=== PATIENT | female | born 1950 | race African-American/Black ===

== ENCOUNTER 2020-02-11 15:18 | Inpatient (IN) ==
[2020-02-11] MEDS ORDERED: NS 1000 ML 1,000 ML IV ONE (18:26)
[2020-02-11 19:24] LABS: BILIRUBIN,URINE NEGATIVE (NEGATIVE); BLOOD/HEMOGLOBIN,URINE NEGATIVE (NEGATIVE); GLUCOSE, URINE NEGATIVE (NEGATIVE); KETONES,URINE NEGATIVE (NEGATIVE); LEUKOCYTE ESTERASE ,URINE 1+ (NEGATIVE); NITRITES,URINE NEGATIVE (NEGATIVE); PROTEIN,URINE 2+ (NEGATIVE); UROBILINOGEN,URINE NORMAL (NORMAL)
[2020-02-11 19:32] LABS: APPEARANCE,URINE HAZY (CLEAR); BACTERIA,URINE NEGATIVE /HPF (NEGATIVE); COLOR,URINE YELLOW (YELLOW); MUCUS,URINE MODERATE /HPF (NEGATIVE); RBC,URINE 0-2 /HPF (0-3); SQUAMOUS EPITHELIAL CELL,UR RARE /HPF (NEGATIVE); YEAST,URINE MANY /HPF (NEGATIVE)
[2020-02-11 20:11] LABS: BASOPHILS # (AUTO) 0.1 X10^3/uL (0.0-0.1); BASOPHILS % (AUTO) 0.5 % (0.2-1.0); EOSINOPHILS # (AUTO) 0.2 x10^3/uL (0.0-0.2); EOSINOPHILS % (AUTO) 2.1 % (0.9-2.9); HEMATOCRIT 31.6 % (36.0-47.0); HEMOGLOBIN 10.2 g/dL (12.0-16.0); LYMPHOCYTES # (AUTO) 2.2 X10^3/uL (1.3-2.9); LYMPHOCYTES % (AUTO) 21.8 % (21.0-51.0); MEAN CORPUSCULAR HGB CONC 32.5 g/dL (33.0-35.0); MEAN CORPUSCULAR VOLUME 83.2 fL (80.0-100.0); MEAN PLATELET VOLUME 7.7 fL (7.4-11.0); MONOCYTES # (AUTO) 0.6 x10^3/uL (0.3-0.8); MONOCYTES % (AUTO) 6.2 % (0.0-13.0); NEUTROPHILS # (AUTO) 7.1 x10^3/uL (2.2-4.8); NEUTROPHILS % (AUTO) 69.4 % (42.0-75.0); PLATELET COUNT 416 X10^3/uL (150.0-450.0); RED BLOOD COUNT 3.79 X10^6/uL (3.5-5.4); RED CELL DISTRIBUTION WIDTH 16.1 % (11.6-16.5); WHITE BLOOD COUNT 10.2 X10^3/uL (3.6-10.0)
[2020-02-11 20:17] LABS: ALANINE AMINOTRANSFERASE 16 Units/L (12-78); ALBUMIN 3.1 g/dL (3.4-5.0); ALKALINE PHOSPHATASE 52 Units/L (46-116); ASPARTATE AMINO TRANSFERASE 27 Units/L (15-37); BLOOD UREA NITROGEN 82 mg/dL (7-18); CALCIUM 9.6 mg/dL (8.5-10.1); CARBON DIOXIDE 19.5 mmol/L (21-32); CHLORIDE 110 mmol/L (98-107); COR CA(FOR HYPOALB) 10.3 mg/dL (8.5-10.1); CREATININE 5.24 mg/dL (0.55-1.02); SODIUM 143 mmol/L (136-145); TOTAL PROTEIN 7.9 g/dL (6.4-8.2); eGFR NON BLACK RACES 9 (>60)
[2020-02-11] MEDS: MILK OF MAGNESIA PO SCH (21:00)
[2020-02-11] MEDS ORDERED: KAYEXALATE SUSP PO SCH (21:00)
[2020-02-11] MEDS: COLACE CAP 100 MG PO SCH (21:00)
[2020-02-11] MEDS ORDERED: HumuLIN R SUBCUT PRN (21:25)
[2020-02-11] MEDS ORDERED: D50W ABBOJECT SYR IV ONE (21:40)
[2020-02-11] MEDS ORDERED: HumuLIN R IV ONE (21:46)
[2020-02-11] MEDS ORDERED: D50W ABBOJECT SYR ONE (22:08)
[2020-02-12] MEDS: KAYEXALATE SUSP RECTAL SCH ×4 (02:56→21:44)
[2020-02-12] MEDS ORDERED: NS 1000 ML 1,000 ML IV SCH (04:30)
--- NOTE | 2020-02-12 06:23 | RAD ---
HISTORYElevated potassium.STUDYCHEST, 1 VIEWCOMPARISONNone.FINDINGSThe patient is rotated. The cardiac silhouette is enlarged without overt signs of failure. The lungs are clear without focal infiltrate, pneumothorax, or effusion. The bony thorax is unremarkable.IMPRESSIONNo acute cardiopulmonary disease.Electronically signed by: PADMINI FERRELL (Feb 12, 2020 06:21:11)
--- NOTE | 2020-02-12 06:29 | US ---
HISTORYAKISTUDYRENAL SONOGRAMCOMPARISONNone.TECHNIQUEMultiple kern scale and color flow Doppler images of the kidneys were obtained. The region of the urinary bladder was evaluated as well.FINDINGSThe right kidney is normal in size but demonstrates increased echogenicity. The right kidney measures 8.3 cm. No focal mass, hydronephrosis, or stones identified. Normal resistive index of 0.48.The left kidney is normal in size but demonstrates increased echogenicity. The left kidney measures 10.0 cm. No focal mass, hydronephrosis, or stone can be seen within the left kidney. Increased resistive index of 0.71.There is a Carr catheter within the bladder which limits evaluation.IMPRESSIONOne. Increased echogenicity of the bilateral kidneys likely representing underlying medical renal disease.Two. Elevated resistive index of the left kidney to 0.71.Electronically signed by: PADMINI FERRELL (Feb 12, 2020 06:28:16)
[2020-02-12 06:52] LABS: ALANINE AMINOTRANSFERASE 16 Units/L (12-78); ALBUMIN 2.8 g/dL (3.4-5.0); ALKALINE PHOSPHATASE 47 Units/L (46-116); ASPARTATE AMINO TRANSFERASE 27 Units/L (15-37); BLOOD UREA NITROGEN 72 mg/dL (7-18); CALCIUM 9.4 mg/dL (8.5-10.1); CARBON DIOXIDE 18.8 mmol/L (21-32); COR CA(FOR HYPOALB) 10.4 mg/dL (8.5-10.1); CREATININE 4.36 mg/dL (0.55-1.02); SODIUM 145 mmol/L (136-145); TOTAL PROTEIN 7.5 g/dL (6.4-8.2); eGFR NON BLACK RACES 11 (>60)
[2020-02-12 06:56] LABS: CHLORIDE 115 mmol/L (98-107)
[2020-02-12 07:24] LABS: BASOPHILS # (AUTO) 0.1 X10^3/uL (0.0-0.1); BASOPHILS % (AUTO) 0.6 % (0.2-1.0); EOSINOPHILS # (AUTO) 0.4 x10^3/uL (0.0-0.2); EOSINOPHILS % (AUTO) 3.8 % (0.9-2.9); HEMATOCRIT 30.1 % (36.0-47.0); HEMOGLOBIN 9.6 g/dL (12.0-16.0); LYMPHOCYTES # (AUTO) 3.2 X10^3/uL (1.3-2.9); LYMPHOCYTES % (AUTO) 27.6 % (21.0-51.0); MEAN CORPUSCULAR HEMOGLOBIN 26.5 pg (27.0-34.0); MEAN CORPUSCULAR HGB CONC 31.8 g/dL (33.0-35.0); MEAN CORPUSCULAR VOLUME 83.4 fL (80.0-100.0); MEAN PLATELET VOLUME 7.6 fL (7.4-11.0); MONOCYTES # (AUTO) 0.8 x10^3/uL (0.3-0.8); MONOCYTES % (AUTO) 6.6 % (0.0-13.0); NEUTROPHILS # (AUTO) 7.1 x10^3/uL (2.2-4.8); NEUTROPHILS % (AUTO) 61.4 % (42.0-75.0); PLATELET COUNT 404 X10^3/uL (150.0-450.0); RED BLOOD COUNT 3.61 X10^6/uL (3.5-5.4); RED CELL DISTRIBUTION WIDTH 16.3 % (11.6-16.5); WHITE BLOOD COUNT 11.5 X10^3/uL (3.6-10.0)
[2020-02-12 07:34] LABS: PLATELET MORPHOLOGY COMMENT NORMAL (NORMAL)
[2020-02-12 07:36] LABS: POIKILOCYTOSIS SLIGHT
[2020-02-12] MEDS ORDERED: MORPHINE SULFATE INJ 2 MG INJ IVP ONE ×2 (11:37→18:10)
[2020-02-12] MEDS ORDERED: MORPHINE SULFATE INJ 2 MG INJ ONE (11:40)
[2020-02-12 11:55] LABS: CKMB % 0.5 % (<4); TROPONIN I 0.02 ng/mL (0-1.5)
[2020-02-12] MEDS ORDERED: XYLOCAINE 1 % (PLAIN) ONE (11:56)
[2020-02-12 11:57] LABS: CREATINE KINASE MB 4.1 ng/mL (0-4.0)
[2020-02-12] MEDS ORDERED: NS 1/2 1000 ML IV 1,000 ML IV ONE (12:25)
--- NOTE | 2020-02-12 12:43 | DR.H&P ---
H&P - History & Physical for Day of: H&P Date: 02/11/20 - Chief Complaint Chief Complaint: ACUTE RENAL FAILURE, HYPERKALEMIA - History of Present Illness History of Present Illness: PT IS 69 RESIDENT OF [facility] WITH NEW ONSET ACUTE RENAL FAILURE WITH HYPERKALEMIA FOLLOWING TREATMENT WITH PO BACTRIM POST OPERATIVE ORTHO PROCEDURE( LEFT FOOT). PT HAD PMH OF HTN, MENTAL ILLNESS AND DIABETES. PT ADMITTED FOR TREATMENT OF ACUTE ILLNESS, ELECTROLYTE IMBALANCE - Past Medical History Past Medical History: Anxiety, Arthritis, Depression, Diabetes, Hypertension, Schizophrenia - Past Surgical History Surgical History: Cholecystectomy - Family History Family Medical History: Diabetes Mellitus, Hypertension - Social History Does patient currently use any type of tobacco product: No Have you used tobacco products in the last 12 months: No Type of Tobacco Use: Cigarettes How many years tobacco product used: 50 Does any household member use tobacco: No Alcohol Use: None Drug Use: None - Medications Home Medications: No Known Drug Allergies Allergy (Verified 02/11/20 19:26) CONTINUE taking the following medications ascorbic acid (vitamin C) [Vitamin C] 500 mg PO DAILY 02/11/20 [History] cholestyramine (with sugar) 4 g PO BID 02/11/20 [History] collagenase clostridium histo. [Santyl] 1 applic TOPICAL DAILY 02/11/20 [History] furosemide 40 mg PO DAILY 02/11/20 [History] haloperidol decanoate 25 mg IM Q1-2M 02/11/20 [History] hydralazine 100 mg PO BID 02/11/20 [History] ibuprofen 600 mg PO Q8H PRN 02/11/20 [History] lisinopril 20 mg PO DAILY 02/11/20 [History] metformin 500 mg PO BID 02/11/20 [History] metoprolol tartrate 25 mg PO DAILY 02/11/20 [History] multivitamin with iron 1 tab PO DAILY 02/11/20 [History] potassium chloride 20 meq PO DAILY 02/11/20 [History] protein supplement [ProMod Protein] 1 ea PO BID 02/11/20 [History] sulfamethoxazole-trimethoprim 1 tab PO BID 02/11/20 [History] tramadol 50 mg PO Q6H PRN 02/11/20 [History] - Review of Systems Constitutional: Weakness. denies: Fever Eyes: No Symptoms Reported ENT: No Symptoms Reported Respiratory: No Symptoms Reported Cardiovascular: No Symptoms Reported Gastrointestinal: Nausea Genitourinary: No Symptoms Reported Musculoskeletal: No Symptoms Reported Skin: Wound Neurological: No Symptoms Reported - Physical Exam Vital Signs: Temperature 98.5 F Pulse Rate [Right Radial] 119 Respiratory Rate 20 Blood Pressure [Right Arm] 137/62 O2 Sat by Pulse Oximetry 100 Oriented: Normal Eyes: Normal Ear: Normal Nose: Normal Throat: Normal Respiratory: RLL Diminished, LLL Diminished Cardiovascular: Tachycardia : Normal Auscultation: Bowel Sounds: Normal Palpation: Normal Tenderness: Normal Skin: Normal Musculoskeletal: Left, Foot, Tender Psychiatric: Anxiety Affect: Anxious Speech Pattern: Clear, Appropriate - Assessment/Plan (1) Acute renal failure Status: Acute Plan: ADMIT, GENTLE IV HYDRATION. CXR ON ADMISSION. RENAL US ON ADMISSON. BP AND BS CONTROL. ELECTROLYTE CORRECTION, CARIDAC MONITORING (2) Hyperkalemia Status: Acute (3) Hypertension Status: Acute (4) Schizophrenia Status: Acute - Allergies Allergies/Adverse Reactions: Allergies Allergy/AdvReac Type Severity Reaction Status Date / Time No Known Drug Allergies Allergy Verified 02/11/20 19:26
--- NOTE | 2020-02-12 12:45 | RAD ---
HISTORYPOST CENTRAL LINE INSERTIONSTUDYCHEST, 1 VIEWCOMPARISONChest x-ray dated February 11, 2020.FINDINGSInterval placement of a right subclavian central venous catheter whose tip overlies the right ventricle. The trachea is midline. The cardiac silhouette is unremarkable . The lungs are clear without focal infiltrate, pneumothorax, or effusion. The bony thorax is unremarkable.IMPRESSIONOne. Right subclavian central venous catheter whose tip overlies the right ventricle. Recommend pulling tip back approximately 6 cm and reimaging.Two. No significant change in lung aeration.Electronically signed by: PADMINI FERRELL (Feb 12, 2020 12:43:10)
--- NOTE | 2020-02-12 12:49 | PCM.PROG ---
Progress Note - Progress Note for Day of Date of Exam: 02/12/20 - Subjective Subjective: PT IS 69 BF DIRECT ADMIT FROM [facility] PER DR ROONEY DUE TO ACUTE RANL FAILURE AND HYPERKALEMIA. PT HAD LEFT FOOT PROCEDURE PER SEMICONDUCTOR TECHNICIAN. PT IS CURRENTLY ON GENTLE IV HYDRATION WITH 1/2 NS AT 50CC. PT WAS GIVEN KAEXALATE PO, WITH PERSISTANT VOMITING AFTER ADMINISTRATION. DR SHANDA Melvin ONSULTED FOR CENTRAL LINE DUE TO POOR VASCULAR ACCESS. PT K 7.1, BUN 72 CREAT 4.36 THIS AM. CE AND EKG ORDERED AND KUB. PT IS TOLERATING PO WATER WELL, ENCOURAGED PO HYDRATION, BS CONTROL. RETENTION ENEMA ORDERED FOR ELECTROLYTE IMBALANCE. - Past Medical Family Social History Past Med/Fam/Surg Hx: No changes since H&P Allergies: Allergies No Known Drug Allergies Allergy (Verified 02/11/20 19:26) - Review of Systems ROS: No change since H&P - Vital Signs and I&O's Vital Signs: Temperature 98.5 F Pulse Rate [Right Radial] 119 Respiratory Rate 20 Blood Pressure [Right Arm] 137/62 O2 Sat by Pulse Oximetry 100 Intake and Output: Intake & Output 02/10/20 02/11/20 02/12/20 02/13/20 11:59 11:59 11:59 11:59 Intake Total 1405 / 1405 Output Total 850 / 850 Balance 555 / 555 - Physical Exam Oriented: Normal Eyes: Normal Ear: Normal Nose: Normal Throat: Normal Respiratory: Diminished Cardiovascular: Tachycardia : Normal Auscultation: Bowel Sounds: Normal Tenderness: Normal Skin: Normal Musculoskeletal: Left, Foot, Tender Psychiatric: Anxiety Affect: Anxious Speech Pattern: Clear, Appropriate - Laboratory and Diagnostics Result Diagrams: 02/12/20 05:50 02/12/20 05:50 Labs: 02/11/20 18:20 Urine,Catheterized Urine Culture - Preliminary Laboratory WBC 11.5 X10^3/uL (3.6-10.0) H 02/12/20 05:50 RBC 3.61 X10^6/uL (3.5-5.4) 02/12/20 05:50 Hgb 9.6 g/dL (12.0-16.0) L 02/12/20 05:50 Hct 30.1 % (36.0-47.0) L 02/12/20 05:50 MCV 83.4 fL (80.0-100.0) 02/12/20 05:50 MCH 26.5 pg (27.0-34.0) L 02/12/20 05:50 MCHC 31.8 g/dL (33.0-35.0) L 02/12/20 05:50 RDW 16.3 % (11.6-16.5) 02/12/20 05:50 Plt Count 404 X10^3/uL (150.0-450.0) 02/12/20 05:50 Plt Count Comment Adequate (ADEQUATE) 02/12/20 05:50 MPV 7.6 fL (7.4-11.0) 02/12/20 05:50 Neut % (Auto) 61.4 % (42.0-75.0) 02/12/20 05:50 Lymph % (Auto) 27.6 % (21.0-51.0) 02/12/20 05:50 [place] % (Auto) 6.6 % (0.0-13.0) 02/12/20 05:50 Eos % (Auto) 3.8 % (0.9-2.9) H 02/12/20 05:50 Baso % (Auto) 0.6 % (0.2-1.0) 02/12/20 05:50 Neut # (Auto) 7.1 x10^3/uL (2.2-4.8) H 02/12/20 05:50 Lymph # (Auto) 3.2 X10^3/uL (1.3-2.9) H 02/12/20 05:50 [place] # (Auto) 0.8 x10^3/uL (0.3-0.8) 02/12/20 05:50 Eos # (Auto) 0.4 x10^3/uL (0.0-0.2) H 02/12/20 05:50 Baso # (Auto) 0.1 X10^3/uL (0.0-0.1) 02/12/20 05:50 Absolute Nucleated RBC 0.2 /100WBC 02/12/20 05:50 Plt Morphology Comment Normal (NORMAL) 02/12/20 05:50 RBC Morphology Abnormal (NORMAL) A 02/12/20 05:50 Poikilocytosis Slight A 02/12/20 05:50 Sodium 145 mmol/L (136-145) 02/12/20 05:50 Corrected Sodium TNP 02/12/20 05:50 Potassium 7.1 mmol/L (3.5-5.1) H* 02/12/20 05:50 Chloride 115 mmol/L (98-107) H* 02/12/20 05:50 Carbon Dioxide 18.8 mmol/L (21-32) L 02/12/20 05:50 BUN 72 mg/dL (7-18) H 02/12/20 05:50 Creatinine 4.36 mg/dL (0.55-1.02) H 02/12/20 05:50 Est GFR (MDRD) Af Amer 13 (>60) L 02/12/20 05:50 Est GFR (MDRD) Non-Af 11 (>60) L 02/12/20 05:50 Glucose 76 mg/dL (65-99) 02/12/20 05:50 POC Glucose (mg/dL) 60 mg/dL (65-99) L 02/12/20 12:22 Calcium 9.4 mg/dL (8.5-10.1) 02/12/20 05:50 Corrected Calcium 10.4 mg/dL (8.5-10.1) H 02/12/20 05:50 Total Bilirubin 0.20 mg/dL (0.2-1.0) 02/12/20 05:50 AST 27 Units/L (15-37) 02/12/20 05:50 ALT 16 Units/L (12-78) 02/12/20 05:50 Alkaline Phosphatase 47 Units/L (46-116) 02/12/20 05:50 Creatine Kinase 919 Units/L (26-192) H 02/12/20 05:50 CK-MB (CK-2) 4.1 ng/mL (0-4.0) H 02/12/20 05:50 CK/CKMB % Calc 0.5 % (<4) 02/12/20 05:50 Troponin I 0.02 ng/mL (0-1.5) 02/12/20 05:50 Total Protein 7.5 g/dL (6.4-8.2) 02/12/20 05:50 Albumin 2.8 g/dL (3.4-5.0) L 02/12/20 05:50 Globulin 4.7 g/dL (2.5-4.5) H 02/12/20 05:50 Albumin/Globulin Ratio 0.6 Ratio (1.1-2.1) L 02/12/20 05:50 Specimen Type Catherized urine 02/11/20 18:20 Urine Color Yellow (YELLOW) 02/11/20 18:20 Urine Appearance Hazy (CLEAR) 02/11/20 18:20 Urine pH 5.0 (5.0 - 8.0) 02/11/20 18:20 Ur Specific [place] 1.015 (1.000-1.030) 02/11/20 18:20 Urine Protein 2+ (NEGATIVE) 02/11/20 18:20 Urine Glucose (UA) Negative (NEGATIVE) 02/11/20 18:20 Urine Ketones Negative (NEGATIVE) 02/11/20 18:20 Urine Occult Blood Negative (NEGATIVE) 02/11/20 18:20 Urine Nitrite Negative (NEGATIVE) 02/11/20 18:20 Urine Bilirubin Negative (NEGATIVE) 02/11/20 18:20 Urine Urobilinogen Normal (NORMAL) 02/11/20 18:20 Ur Leukocyte Esterase 1+ (NEGATIVE) 02/11/20 18:20 Urine RBC 0-2 /HPF (0-3) 02/11/20 18:20 Urine WBC 3-5 /HPF (0-5) 02/11/20 18:20 Ur Squamous Epith Cells Rare /HPF (NEGATIVE) 02/11/20 18:20 Urine Bacteria Negative /HPF (NEGATIVE) 02/11/20 18:20 Urine Mucus Moderate /HPF (NEGATIVE) 02/11/20 18:20 Urine Yeast Many /HPF (NEGATIVE) 02/11/20 18:20 Ur Culture Indicated? No/not indicated 02/11/20 18:20 - Plan (1) Acute renal failure Status: Acute Plan: GENTLE IV HYDRATION. CXR ON ADMISSION. RENAL US ON ADMISSON. BP AND BS CONTROL. ELECTROLYTE CORRECTION,. CARIDAC MONITORING, CE AND EKG (2) Hyperkalemia Status: Acute (3) Hypertension Status: Acute (4) Schizophrenia Status: Acute
[2020-02-12] MEDS: NS 1/2 1000 ML IV 1,000 ML IV SCH (13:00)
[2020-02-12] MEDS ORDERED: ANCEF VIAL 1 GRAM IVP ONE (13:07)
[2020-02-12 13:33] VITALS: BMI 30.4
--- NOTE | 2020-02-12 13:34 | RAD ---
HISTORYPainSTUDYKUBCOMPARISONNoneFINDINGSThere is a overlying EKG lead artifact. There are multiple l oops of mildly dilated large and small bowel throughout the abdomen. There is moderate feces througho ut the colon. There is catheter tubing projecting along the lower pelvis. There is a left hip prosthe sis in good position. No free air is seen and there are surgical clips along the right upper quadrant . No urinary calculi are seen.IMPRESSIONStatus post cholecystectomy with a questionable diffuse mild postop ileus.Moderate constipation with a radiopaque catheter projecting along the lower pelvis.Elect ronically signed by: PADMINI VEGA (Feb 12, 2020 13:32:37)
[2020-02-12] MEDS ORDERED: NS 50 ML IV 50 ML IV ONE (15:20)
[2020-02-12] MEDS ORDERED: ANCEF VIAL 1 GRAM ONE (15:20)
[2020-02-12] MEDS: DIFLUCAN PO SCH (20:39)
[2020-02-12] MEDS: COLACE CAP 100 MG PO SCH (20:40)
[2020-02-12] MEDS: MILK OF MAGNESIA PO SCH (20:40)
[2020-02-12] MEDS ORDERED: APRESOLINE TAB 25 MG PO SCH (21:00)
[2020-02-13] MEDS: KAYEXALATE SUSP RECTAL SCH ×3 (03:30→17:23)
[2020-02-13] MEDS: NS 1/2 1000 ML IV 1,000 ML IV SCH ×4 (05:07→14:11)
[2020-02-13 06:45] LABS: BASOPHILS # (AUTO) 0.1 X10^3/uL (0.0-0.1); BASOPHILS % (AUTO) 0.7 % (0.2-1.0); EOSINOPHILS # (AUTO) 0.3 x10^3/uL (0.0-0.2); HEMATOCRIT 29.1 % (36.0-47.0); HEMOGLOBIN 9.5 g/dL (12.0-16.0); LYMPHOCYTES # (AUTO) 2.1 X10^3/uL (1.3-2.9); MEAN CORPUSCULAR HEMOGLOBIN 27.3 pg (27.0-34.0); MEAN CORPUSCULAR HGB CONC 32.8 g/dL (33.0-35.0); MEAN CORPUSCULAR VOLUME 83.2 fL (80.0-100.0); MONOCYTES # (AUTO) 0.6 x10^3/uL (0.3-0.8); MONOCYTES % (AUTO) 7.2 % (0.0-13.0); NEUTROPHILS # (AUTO) 4.7 x10^3/uL (2.2-4.8); NEUTROPHILS % (AUTO) 61.1 % (42.0-75.0); PLATELET COUNT 345 X10^3/uL (150.0-450.0); RED CELL DISTRIBUTION WIDTH 16.3 % (11.6-16.5); WHITE BLOOD COUNT 7.7 X10^3/uL (3.6-10.0)
[2020-02-13 06:57] LABS: ALANINE AMINOTRANSFERASE 15 Units/L (12-78); ALBUMIN 2.6 g/dL (3.4-5.0); ALKALINE PHOSPHATASE 47 Units/L (46-116); ASPARTATE AMINO TRANSFERASE 27 Units/L (15-37); BLOOD UREA NITROGEN 55 mg/dL (7-18); CALCIUM 8.8 mg/dL (8.5-10.1); CHLORIDE 111 mmol/L (98-107); COR CA(FOR HYPOALB) 9.9 mg/dL (8.5-10.1); CREATININE 2.92 mg/dL (0.55-1.02); SODIUM 141 mmol/L (136-145); TOTAL PROTEIN 6.9 g/dL (6.4-8.2); eGFR NON BLACK RACES 17 (>60)
[2020-02-13] MEDS: SNACK - Diabetic Appropriate PO SCH ×2 (07:38→20:15)
[2020-02-13] MEDS: DIFLUCAN PO SCH (09:57)
[2020-02-13] MEDS: LOPRESSOR TAB 25 MG PO SCH (09:57)
[2020-02-13] MEDS ORDERED: NS 1/2 1000 ML IV 1,000 ML IV ONE ×2 (10:13→19:30)
[2020-02-13] MEDS: MILK OF MAGNESIA PO SCH (21:40)
[2020-02-13] MEDS: COLACE CAP 100 MG PO SCH (21:40)
[2020-02-14] MEDS ORDERED: BUTT CREAM (COMPOUND) ONE (00:43)
[2020-02-14 06:41] LABS: BASOPHILS % (AUTO) 0.4 % (0.2-1.0); EOSINOPHILS # (AUTO) 0.4 x10^3/uL (0.0-0.2); EOSINOPHILS % (AUTO) 4.1 % (0.9-2.9); HEMATOCRIT 23.6 % (36.0-47.0); LYMPHOCYTES # (AUTO) 2.8 X10^3/uL (1.3-2.9); LYMPHOCYTES % (AUTO) 32.5 % (21.0-51.0); MEAN CORPUSCULAR HEMOGLOBIN 28.1 pg (27.0-34.0); MEAN CORPUSCULAR HGB CONC 33.8 g/dL (33.0-35.0); MEAN PLATELET VOLUME 7.9 fL (7.4-11.0); MONOCYTES # (AUTO) 0.5 x10^3/uL (0.3-0.8); NEUTROPHILS # (AUTO) 4.9 x10^3/uL (2.2-4.8); PLATELET COUNT 346 X10^3/uL (150.0-450.0); RED BLOOD COUNT 2.84 X10^6/uL (3.5-5.4); RED CELL DISTRIBUTION WIDTH 15.9 % (11.6-16.5); WHITE BLOOD COUNT 8.6 X10^3/uL (3.6-10.0)
[2020-02-14 06:42] LABS: ALANINE AMINOTRANSFERASE 13 Units/L (12-78); ALBUMIN 2.4 g/dL (3.4-5.0); ALKALINE PHOSPHATASE 43 Units/L (46-116); ASPARTATE AMINO TRANSFERASE 19 Units/L (15-37); BLOOD UREA NITROGEN 38 mg/dL (7-18); CALCIUM 8.7 mg/dL (8.5-10.1); CARBON DIOXIDE 20.9 mmol/L (21-32); CHLORIDE 111 mmol/L (98-107); CREATININE 1.76 mg/dL (0.55-1.02); SODIUM 142 mmol/L (136-145); TOTAL PROTEIN 6.3 g/dL (6.4-8.2); eGFR NON BLACK RACES 30 (>60)
[2020-02-14] MEDS ORDERED: NS 1/2 1000 ML IV 1,000 ML IV ONE (08:38)
[2020-02-14] MEDS: NS 1/2 1000 ML IV 1,000 ML IV SCH ×2 (08:56→16:16)
[2020-02-14] MEDS: LOPRESSOR TAB 25 MG PO SCH (08:57)
[2020-02-14] MEDS: DIFLUCAN PO SCH (08:57)
[2020-02-14] MEDS ORDERED: PHARMACY CONSULT LTC MEDICATIONS XX SCH (10:00)
--- NOTE | 2020-02-14 16:49 | RAD ---
HISTORYDIMISHED LUNG SOUNDSSTUDYCHEST, 1 [id number]/2020FINDINGSUnderinflation. Right subclavian central venous catheter again seen w ith tip in low right atrium. No dense consolidation, overt pulmonary edema, sizable effusion, or visi ble pneumothorax. No acute osseous finding.IMPRESSIONUnderinflation without acute finding. Right subc lavian central venous catheter remains deep. Consider 4 cm retraction.Electronically signed by: Kt Zendejas (Feb 14, 2020 16:47:53)
[2020-02-14] MEDS: SNACK - Diabetic Appropriate PO SCH (20:57)
[2020-02-14] MEDS: COLACE CAP 100 MG PO SCH (20:58)
[2020-02-14] MEDS: MILK OF MAGNESIA PO SCH (20:58)
[2020-02-14] MEDS: TEFLARO 400 MG in NS 50 ML IV 50 ML IV SCH (20:58)
[2020-02-15] MEDS ORDERED: NS 1/2 1000 ML IV 1,000 ML IV ONE ×2 (02:14→20:03)
[2020-02-15 05:58] LABS: BASOPHILS # (AUTO) 0.1 X10^3/uL (0.0-0.1); BASOPHILS % (AUTO) 0.7 % (0.2-1.0); EOSINOPHILS # (AUTO) 0.3 x10^3/uL (0.0-0.2); EOSINOPHILS % (AUTO) 3.8 % (0.9-2.9); HEMATOCRIT 25.8 % (36.0-47.0); HEMOGLOBIN 8.6 g/dL (12.0-16.0); LYMPHOCYTES # (AUTO) 2.6 X10^3/uL (1.3-2.9); LYMPHOCYTES % (AUTO) 31.3 % (21.0-51.0); MEAN CORPUSCULAR HGB CONC 33.5 g/dL (33.0-35.0); MEAN CORPUSCULAR VOLUME 83.7 fL (80.0-100.0); MEAN PLATELET VOLUME 7.5 fL (7.4-11.0); MONOCYTES # (AUTO) 0.5 x10^3/uL (0.3-0.8); MONOCYTES % (AUTO) 6.4 % (0.0-13.0); NEUTROPHILS # (AUTO) 4.9 x10^3/uL (2.2-4.8); NEUTROPHILS % (AUTO) 57.8 % (42.0-75.0); PLATELET COUNT 322 X10^3/uL (150.0-450.0); RED BLOOD COUNT 3.08 X10^6/uL (3.5-5.4); RED CELL DISTRIBUTION WIDTH 15.7 % (11.6-16.5); WHITE BLOOD COUNT 8.4 X10^3/uL (3.6-10.0)
[2020-02-15] MEDS: NS 1/2 1000 ML IV 1,000 ML IV SCH ×2 (06:01→19:11)
[2020-02-15 06:06] LABS: ALANINE AMINOTRANSFERASE 11 Units/L (12-78); ALBUMIN 2.3 g/dL (3.4-5.0); ALKALINE PHOSPHATASE 44 Units/L (46-116); ASPARTATE AMINO TRANSFERASE 18 Units/L (15-37); BLOOD UREA NITROGEN 27 mg/dL (7-18); CALCIUM 8.7 mg/dL (8.5-10.1); CARBON DIOXIDE 21.4 mmol/L (21-32); CHLORIDE 113 mmol/L (98-107); COR CA(FOR HYPOALB) 10.1 mg/dL (8.5-10.1); CREATININE 1.35 mg/dL (0.55-1.02); SODIUM 143 mmol/L (136-145); TOTAL PROTEIN 6.1 g/dL (6.4-8.2); eGFR NON BLACK RACES 41 (>60)
[2020-02-15] MEDS ORDERED: D50W ABBOJECT SYR IV ONE ×2 (06:28)
[2020-02-15] MEDS: DIFLUCAN PO SCH (10:15)
[2020-02-15] MEDS: LOPRESSOR TAB 25 MG PO SCH (10:15)
[2020-02-15] MEDS: TEFLARO 400 MG in NS 50 ML IV 50 ML IV SCH ×2 (10:16→20:41)
[2020-02-15] MEDS: SNACK - Diabetic Appropriate PO SCH (20:40)
[2020-02-15] MEDS: COLACE CAP 100 MG PO SCH (20:40)
[2020-02-15] MEDS: MILK OF MAGNESIA PO SCH (20:40)
[2020-02-15] MEDS: ULTRAM PO PRN (20:41)
[2020-02-16] MEDS: NS 1/2 1000 ML IV 1,000 ML IV SCH ×2 (00:59→06:08)
[2020-02-16 06:51] LABS: BASOPHILS # (AUTO) 0.1 X10^3/uL (0.0-0.1); BASOPHILS % (AUTO) 0.6 % (0.2-1.0); EOSINOPHILS # (AUTO) 0.3 x10^3/uL (0.0-0.2); EOSINOPHILS % (AUTO) 4.3 % (0.9-2.9); HEMATOCRIT 25.8 % (36.0-47.0); HEMOGLOBIN 8.5 g/dL (12.0-16.0); LYMPHOCYTES # (AUTO) 2.3 X10^3/uL (1.3-2.9); LYMPHOCYTES % (AUTO) 29.5 % (21.0-51.0); MEAN CORPUSCULAR HEMOGLOBIN 27.4 pg (27.0-34.0); MEAN CORPUSCULAR VOLUME 83.1 fL (80.0-100.0); MEAN PLATELET VOLUME 7.4 fL (7.4-11.0); MONOCYTES # (AUTO) 0.5 x10^3/uL (0.3-0.8); MONOCYTES % (AUTO) 6.8 % (0.0-13.0); NEUTROPHILS # (AUTO) 4.6 x10^3/uL (2.2-4.8); NEUTROPHILS % (AUTO) 58.8 % (42.0-75.0); PLATELET COUNT 340 X10^3/uL (150.0-450.0); RED CELL DISTRIBUTION WIDTH 15.9 % (11.6-16.5); WHITE BLOOD COUNT 7.9 X10^3/uL (3.6-10.0)
[2020-02-16 07:12] LABS: CALCIUM 8.2 mg/dL (8.5-10.1); CARBON DIOXIDE 23.2 mmol/L (21-32); COR CA(FOR HYPOALB) 9.8 mg/dL (8.5-10.1); CREATININE 1.24 mg/dL (0.55-1.02); TOTAL PROTEIN 5.9 g/dL (6.4-8.2)
[2020-02-16] MEDS: LOPRESSOR TAB 25 MG PO SCH (09:13)
[2020-02-16] MEDS: DIFLUCAN PO SCH (09:14)
[2020-02-16] MEDS: ULTRAM PO PRN ×2 (09:15→15:50)
[2020-02-16] MEDS: TEFLARO 400 MG in NS 50 ML IV 50 ML IV SCH (09:16)
[2020-02-16 16:08] VITALS: BP 145/67
== END 2020-02-16 16:25 | DRG 682 ==
LOC: MED/SURG 18:03
PROVIDERS: ADMIT Internal Medicine; ATTEND Internal Medicine
DX: E66.9 Obesity, unspecified; E11.9 Type 2 diabetes mellitus without complications; L89.624 Pressure ulcer of left heel, stage 4; F20.89 Other schizophrenia; D50.8 Other iron deficiency anemias; Z79.899 Other long term (current) drug therapy; N17.8 Other acute kidney failure; S31.000A Unspecified open wound of lower back and pelvis without penetration into retroperitoneum, initial encounter; B96.4 Proteus (mirabilis) (morganii) as the cause of diseases classified elsewhere; E87.5 Hyperkalemia; I87.2 Venous insufficiency (chronic) (peripheral); Z98.890 Other specified postprocedural states; I10 Essential (primary) hypertension; X58.XXXA Exposure to other specified factors, initial encounter; B96.29 Other Escherichia coli [E. coli] as the cause of diseases classified elsewhere